=== PATIENT | female | born 1945 | race Caucasian/White ===

== ENCOUNTER 2022-12-12 15:48 | Outpatient (REF) | payer MEDICARE, SELFPAY ==
[2022-12-12 17:28] LABS: Bilirubin Negative (Negative); Blood Moderate (Negative); Clarity Cloudy (Clear); Glucose Negative (Negative); Ketones Negative (Negative); Leukocyte Esterase Small (Negative); Nitrite Positive (Negative); Specific Gravity >= 1.030 (1.005-1.025); Urobilinogen 0.2 mg/dL (Up to 0.2); pH 5.5 (5-8)
[2022-12-12 17:42] LABS: Bacteria Moderate HPF (Negative); C & S Indicated? Yes; Casts Negative LPF (Negative); Crystals Mod Calcium Oxalate HPF (Negative); Epithelial Cells Few HPF (Negative); Mucus Trace (Negative)
== END 2022-12-12 15:49 | disposition home or self-care (01) ==
LOC: LBN 15:48
PROVIDERS: Visit Provider Family Medicine
DX: R82.998 Other abnormal findings in urine (principal)
CPT/HCPCS: 87077; 81003; 81015; 87086; 87186